=== PATIENT | female | born 1985 | race Caucasian/White ===

== ENCOUNTER 2017-02-15 22:16 | Emergency (ER) | payer OTHER, SELFPAY ==
[~2017-02-15] VITALS: Ht 160 cm; Wt 68.0 kg
[2017-02-15] MEDS ORDERED: LEVO125T3 PO (22:22)
[2017-02-15] MEDS ORDERED: fentaNYL 100 MCG/2 ML INJECTION (J3010) IV ONE (23:15)
--- NOTE | 2017-02-16 01:30 | REPUSA ---
MRI cervical spine without contrast Clinical statement: Pain. Injury. Technique: Multiecho multiplanar MRI images of the cervical spine were obtained without administratio n of contrast. No comparison is available. Findings: The cervical vertebral bodies are in satisfactory position and alignment. No fractures or d islocations are demonstrated. Normal heterogeneous bone marrow signal is noted. No osseous tumors are seen. The visualized portions of the posterior fossa are unremarkable. The cervical cranial junction is intact. The intervertebral disc spaces and heights are well-maintained. The facet joints are inta ct without evidence of subluxation. The cervical spinal cord demonstrates normal signal and contour. The surrounding soft tissues are within normal limits. At the cervical vertebral levels, there is no evidence of disc herniation or protrusion. There is no central canal stenosis. The neural foramina are patent bilaterally. Impression: Unremarkable MRI examination of the cervical spine.
--- NOTE | 2017-02-16 01:40 | REPUSA ---
MRI of the thoracic spine without contrast Clinical statement: Pain. Injury. Technique: Multiecho multiplanar MRI images of the thoracic spine were obtained without administratio n of contrast. No comparison is available. Findings: The thoracic vertebral bodies are in satisfactory position and alignment. No fractures or d islocations are demonstrated. The bone marrow appears unremarkable. Intervertebral disc spaces are we ll maintained. There is no evidence of disc herniation or protrusion. The neural foramen are patent. The facet joints are intact. The surrounding soft tissues are within normal limits. Impression: Unremarkable MRI examination of the thoracic spine.
[2017-02-16] MEDS ORDERED: NAPR500T PO (02:51)
[2017-02-16] MEDS ORDERED: CYCL10TA PO (02:51)
[2017-02-16] MEDS ORDERED: MORPHINE 4 MG/ML 1ML SYRINGE IV ONE (03:00)
[2017-02-16] MEDS ORDERED: KETOROLAC 30 MG/ML VIAL (J1885) IV ONE (03:00)
[2017-02-16 03:27] VITALS: BP 137/89
== END 2017-02-16 03:30 | disposition home or self-care (01) ==
LOC: M ED 23:33
DX: M54.2 Cervicalgia (principal); Z85.850 Personal history of malignant neoplasm of thyroid; Z79.899 Other long term (current) drug therapy; F17.200 Nicotine dependence, unspecified, uncomplicated; Z88.5 Allergy status to narcotic agent
CPT/HCPCS: 72141; 72146; 96374; 96375; 99282; J1885; J3010; J3360

== ENCOUNTER 2017-07-08 15:45 | Emergency (ER) | payer SELFPAY ==
[~2017-07-08] VITALS: Ht 160 cm; Wt 72.7 kg
[2017-07-08 15:45] VITALS: BP 152/78
[~2017-07-08 15:45] MED LIST: CYCL10TA PO; LEVO125T4 PO; NAPR500T PO
[2017-07-08] MEDS ORDERED: LEVO137T2 (16:05)
[2017-07-08] MEDS ORDERED: AMOXICILLIN 500 MG CAP PO ONE (17:00)
[2017-07-08] MEDS ORDERED: NORCO, ANEXSIA 5/325MG TABLET (HYDROcodone/ACETAMINOPHEN) PO ONE (17:00)
[2017-07-08] MEDS ORDERED: IBUP80TA PO (17:04)
[2017-07-08] MEDS ORDERED: AMOX500C PO (17:04)
== END 2017-07-08 17:09 | disposition home or self-care (01) ==
LOC: M ED 15:45
DX: K02.9 Dental caries, unspecified (principal); F17.210 Nicotine dependence, cigarettes, uncomplicated; E07.9 Disorder of thyroid, unspecified; Z88.5 Allergy status to narcotic agent; Z79.899 Other long term (current) drug therapy

== ENCOUNTER 2017-10-21 11:18 | Emergency (ER) | payer OTHER, SELFPAY ==
[~2017-10-21] VITALS: Ht 160 cm; Wt 77.3 kg
[~2017-10-21 11:18] MED LIST changes: +AMOX500C PO; +IBUP80TA PO; +LEVO137T2
[2017-10-21] MEDS ORDERED: TYLE325T5 PO (11:26)
[2017-10-21] MEDS ORDERED: MORPHINE 10 MG/ML 1ML VIAL IM ONE (12:00)
[2017-10-21] MEDS ORDERED: PENI500T OR (12:03)
[2017-10-21] MEDS ORDERED: PERC5TAB12 PO (12:03)
[2017-10-21] MEDS ORDERED: IBUP-1022 PO (12:05)
[2017-10-21] MEDS ORDERED: PERCOCET 5MG/325MG TAB PO ONE (12:15)
[2017-10-21] MEDS ORDERED: PENICILLIN V POTASSIUM 500 MG TAB PO ONE (12:15)
[2017-10-21 12:24] VITALS: BP 154/88
== END 2017-10-21 12:27 | disposition home or self-care (01) ==
LOC: M ED 11:18
DX: K04.7 Periapical abscess without sinus (principal); F17.210 Nicotine dependence, cigarettes, uncomplicated; Z79.899 Other long term (current) drug therapy; Z88.5 Allergy status to narcotic agent

== ENCOUNTER 2019-06-25 23:13 | Emergency (ER) | payer SELFPAY ==
[~2019-06-25] VITALS: Ht 160 cm; Wt 75.0 kg
[2019-06-25 23:13] VITALS: BP 171/92
[~2019-06-25 23:13] MED LIST changes: +IBUP-1022 PO; +NAPR-837 PO; -NAPR500T PO; +PENI500T OR; +PERC5TAB12 PO; +TYLE325T5 PO
== END 2019-06-26 02:57 | disposition left against medical advice (07) ==
LOC: M ED 23:13
DX: Z53.21 Procedure and treatment not carried out due to patient leaving prior to being seen by health care provider (principal)

== ENCOUNTER → 2023-03-12 | Outpatient (REF) | payer OTHER, SELFPAY ==
[~2023-03-12] MED LIST changes: +CYCL-707 PO; -CYCL10TA PO
== END ==
LOC: M LAB REF 18:33
PROVIDERS: ATTEND Physician Assistant
DX: J02.9 Acute pharyngitis, unspecified (principal)

== ENCOUNTER → 2025-01-13 | Outpatient (REF) | payer OTHER ==
[2025-01-13 13:50] LABS: ALBUMIN 3.7 G/DL (3.2-5.2); ALKALINE PHOSPHATASE 81 U/L (35-104); ALT/SGPT 14 U/L (7.0-40); AST/SGOT 19 U/L (<34); BILIRUBIN,TOTAL 0.5 MG/DL (0.3-1.2); BLOOD UREA NITROGEN 11 MG/DL (9-23); CARBON DIOXIDE LEVEL 29 MMOL/L (20-31); CHLORIDE LEVEL 106 MMOL/L (98-107); CHOLESTEROL LEVEL 191 MG/DL (<200); CHOLESTEROL RISK RATIO 4.08 (<5); GLOMERULAR FILTRATION RATE > 60.0 (>60); GLUCOSE, FASTING 92 MG/DL (60-100); HDL CHOLESTEROL 46.8 MG/DL (>40); NON-HDL-C 144.2 MG/DL; POTASSIUM SERUM 4.4 MMOL/L (3.5-5.1); SODIUM LEVEL 138 MMOL/L (136-145); TRIGLYCERIDES LEVEL 71 MG/DL (<150)
[2025-01-13 13:51] LABS: THYROID STIMULATING HORMONE 0.317 uIU/ML (0.55-4.78); TOTAL 25(OH) VITAMIN D 9.8 NG/ML (20.0-100.0)
[2025-01-13 13:54] LABS: HEMOGLOBIN A1c 4.9 % (4.0-6.0)
[2025-01-13 14:22] LABS: HIV 1&2 SCREEN NEGATIVE (NEGATIVE)
[2025-01-13 14:30] LABS: HEPATITIS C VIRUS ABY INDEX 0.03 INDEX (<0.8)
== END ==
LOC: M LAB REF 13:15
PROVIDERS: ATTEND Physician Assistant
DX: Z11.9 Encounter for screening for infectious and parasitic diseases, unspecified (principal); E66.9 Obesity, unspecified; E55.9 Vitamin D deficiency, unspecified

== ENCOUNTER → 2025-09-26 | Outpatient (REF) | payer OTHER ==
[~2025-09-26] MED LIST changes: -IBUP-1022 PO; +IBUP600T42 PO
[2025-09-26 18:50] LABS: TOTAL 25(OH) VITAMIN D 33.6 NG/ML (20.0-100.0)
[2025-09-26 18:51] LABS: FREE T4 1.55 NG/DL (0.89-1.76)
== END ==
LOC: M LAB REF 16:24
PROVIDERS: ATTEND Physician Assistant
DX: E03.9 Hypothyroidism, unspecified (principal); E55.9 Vitamin D deficiency, unspecified